=== PATIENT | male | born 1925 | race Caucasian/White ===

== ENCOUNTER 2016-11-18 22:37 | Inpatient (IN) | payer MEDICARE, OTHER ==
--- NOTE | 2016-11-18 23:58 | EDM.PDOC ---
ED HPI GENERAL MEDICAL PROBLEM - General Chief Complaint: Fever Stated Complaint: fever Time Seen by Provider: 11/18/16 22:55 Source of Information: Reports: Patient, Family History Limitations: Reports: No limitations - History of Present Illness INITIAL COMMENTS - FREE TEXT/NARRATIVE: This patient is an 89 year old male that presents to the ER. Patient is accompanied by family. The family reports the patient began last night with fever of 100.1. She reports then today has had fever of 101.7. The patietn only complaint is generalized body aches. Patient family reports he has been more generally weak more than normal. Patient family reports patient is baseline mental status. Patient is alert, oriented to self. Not to place or time. Patient denies having cardoso, dizziness, n, v, d, f, congestion, drainage, cough, neck pain, neck stiffness, cp, soa, abd pain, urinary/bowel changes, rash. Patient had labs done and saw his oncologist one week ago. His wbc was 1.1, hgb 6.6, platelets 25. Onset Date: 11/17/16 Duration: Day(s): (1) Severity: mild Improves with: Reports: None Worsens with: Reports: None Associated Symptoms: Reports: weakness (generalized), other (gneralized body aches ). Denies: confusion, chest pain, cough, cough w sputum, diaphoresis, fever/chills, headaches, loss of appetite, malaise, nausea/vomiting, rash, seizure, shortness of breath, syncope - Related Data Allergies Allergy/AdvReac Type Severity Reaction Status Date / Time Penicillins Allergy Intermediate Hives Verified 10/19/16 02:06 Home Meds: Home Meds Cholecalciferol (Vitamin D3) [Vitamin D3] 1,000 unit PO DAILY 08/03/14 [History] Cyanocobalamin (Vitamin B-12) [Vitamin B-12] 500 mcg PO DAILY 08/03/14 [History] Omeprazole [Prilosec] 20 mg PO DAILY 08/03/14 [History] Dextran 70/Hypromellose [Artificial Tears] 1 drop EYEBOTH QID PRN 10/19/16 [ History] Fluconazole [Diflucan] 100 mg PO DAILY 10/19/16 [History] Levofloxacin [Levaquin] 500 mg PO Q24H 10/19/16 [History] Sennosides/Docusate Sodium [Miranda-Colace] 1 tab PO DAILY 10/19/16 [History] Silodosin [Rapaflo] 8 mg PO DAILY 10/19/16 [History] Vit A/Vit C/Vit E/Zinc/Copper [Preservision] 1 each PO DAILY 10/19/16 [History] valACYclovir [Valtrex] 500 mg PO DAILY 10/19/16 [History] Past Medical History Cardiovascular History: Reports: Heart murmur Genitourinary History: Reports: UTI, recurrent Other Genitourinary History: recent [place] catheter Other Musculoskeletal History: pelvic fracture Other Hematologic History: unaware at this time but labs are CBC abnormal Oncologic (Cancer) History: Reports: Leukemia Social & Family History - Family History Family Medical History: Noncontributory - Tobacco Use Smoking Status *Q: Never Smoker Second Hand Smoke Exposure: No - Alcohol Use Days Per Week of Alcohol Use: 0 - Recreational Drug Use Recreational Drug Use: No Drug Use in Last 12 Months: Yes - Living Situation & Occupation Living situation: Reports: , with spouse 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 ) Skin: Reports: no symptoms Neurological: Reports: no symptoms (baseline. ) Psychiatric: Reports: No symptoms Hematologic/Lymphatic: Reports: no symptoms Immunologic: Reports: no symptoms ED EXAM, GENERAL - Physical Exam Exam: See Below Exam Limited By: No limitations General Appearance: alert, WD/WN, no apparent distress Eye Exam: bilateral eye: normal inspection Ears: normal external exam, normal canal, hearing grossly normal, normal TMs Ear Exam: bilateral ear: auricle normal, canal normal, TM normal Nose: normal inspection, normal mucosa, no blood Throat/Mouth: Normal inspection, Normal lips, Normal gums, Normal oropharynx, Normal voice, No airway compromise Head: atraumatic, normocephalic Neck: normal inspection, supple, non-tender, full range of motion Respiratory/Chest: no respiratory distress, lungs clear, normal breath sounds, no accessory muscle use, chest non-tender Cardiovascular: normal peripheral pulses, regular rate, rhythm, no edema, no gallop, no JVD, no murmur, no rub Peripheral Pulses: 2+: radial (L), radial (R), posterior tibial (L), posterior tibial (R), dorsalis pedis (L), dorsalis pedis (R) GI/Abdominal: normal bowel sounds, soft, non tender, no organomegaly, no distention, no abnormal bruit, no mass Back Exam: normal inspection, full range of motion. No: CVA tenderness (L), CVA tenderness (R) Extremities: normal inspection, normal range of motion, non-tender, no pedal edema, normal capillary refill Neurological: alert, oriented Psychiatric: normal affect, normal mood Skin Exam: Warm, Dry, Intact, Normal color, No rash Lymphatic: no adenopathy Course - Vital Signs Last Recorded V/S: Last Vital Signs Temp 100.4 F 11/18/16 22:53 Pulse 75 11/18/16 22:53 Resp 16 11/18/16 22:53 BP 114/55 L 11/18/16 22:53 Pulse Ox 96 11/18/16 22:53 - Orders/Labs/Meds Orders: Active Orders 24 hr Category Date Time Status Chest 2V [CR] Stat Exams 11/18/16 23:22 Taken CULTURE BLOOD [BC] Stat Lab 11/18/16 23:36 Received CULTURE BLOOD [BC] Stat Lab 11/18/16 23:36 Received Blood Culture x2 Reflex Set [OM.PC] Stat Oth 11/18/16 23:09 Ordered Labs: Laboratory Tests 11/18/16 11/18/16 11/18/16 Range/Units 23:09 23:36 23:36 WBC 1.9 L* (5.0-10.0) 10^3/uL RBC 2.23 L (4.50-6.00) 10^6/uL Hgb 7.4 L* (14.0-18.0) g/dL Hct 22.0 L (40.0-54.0) % MCV 98.7 H (82.0-94.0) fL MCH 33.2 H (27.0-32.0) pg MCHC 33.6 (33.0-38.0) g/dL RDW Coeff of Madisyn 18.8 H (11.0-15.0) % Plt Count 14 L* (150-400) 10^3/uL Add Manual Diff Yes Neutrophils % (Manual) 6 L (35-85) % Lymphocytes % (Manual) 74 H (21-55) % Monocytes % (Manual) 4 (2-12) % Metamyelocytes % 2 % Myelocytes % 4 % Blast Cells % 10 % Absolute Neutrophils 0.11 L (1.80-7.00) 10^3/uL Lymphocytes # (Manual) 1.41 (1.00-4.80) 10^3/uL Monocytes # (Manual) 0.08 (0.00-0.80) 10^3/uL Platelet Estimate Marked dec L (ADEQUATE) Sodium 138 (136-145) mEq/L Potassium 3.9 D (3.5-5.0) mEq/L Chloride 104 (98-106) mEq/L Carbon Dioxide 26 (21-32) mmol/L BUN 17 (7-18) mg/dL Creatinine 1.2 (0.7-1.3) mg/dL Est Cr Clr Drug Dosing 43.09 mL/min Estimated GFR (MDRD) 57 L (>=60) mL/min Glucose 130 H (75-99) mg/dL Lactic Acid (0.4-2.0) mmol/L Calcium 8.1 L (8.4-10.1) mg/dL Total Bilirubin 0.6 (0.0-1.0) mg/dL AST 14 L (15-37) U/L ALT 14 (12-78) U/L Alkaline Phosphatase 100 (46-116) U/L C-Reactive Protein 4.6 H (0.2-0.8) mg/dL Total Protein 6.5 (6.4-8.2) g/dL Albumin 2.6 L (3.4-5.0) g/dL Urine Color Yellow (YELLOW) Urine Appearance Clear (CLEAR) Urine pH 6.0 (4.5-8.0) Ur Specific [place] 1.021 H (1.003-1.020) Urine Protein 30 H (NEGATIVE) mg/dL Urine Glucose (UA) Negative (NEGATIVE) mg/dL Urine Ketones Negative (NEGATIVE) mg/dL Urine Occult Blood Negative (NEGATIVE) Urine Nitrite Negative (NEGATIVE) Urine Bilirubin Negative (NEGATIVE) Urine Urobilinogen 1.0 (0.2-1.0) EU/dL Ur Leukocyte Esterase Negative (NEGATIVE) Urine RBC Not seen (0-5) /HPF Urine WBC Not seen (0-5) /HPF Ur Squamous Epith Cells Few H (NOT SEEN) /HPF Urine Bacteria Few H (NOT SEEN) /HPF Urine Mucus Many H (NOT SEEN) /HPF 11/18/16 Range/Units 23:36 WBC (5.0-10.0) 10^3/uL RBC (4.50-6.00) 10^6/uL Hgb (14.0-18.0) g/dL Hct (40.0-54.0) % MCV (82.0-94.0) fL MCH (27.0-32.0) pg MCHC (33.0-38.0) g/dL RDW Coeff of Madisyn (11.0-15.0) % Plt Count (150-400) 10^3/uL Add Manual Diff Neutrophils % (Manual) (35-85) % Lymphocytes % (Manual) (21-55) % Monocytes % (Manual) (2-12) % Metamyelocytes % % Myelocytes % % Blast Cells % % Absolute Neutrophils (1.80-7.00) 10^3/uL Lymphocytes # (Manual) (1.00-4.80) 10^3/uL Monocytes # (Manual) (0.00-0.80) 10^3/uL Platelet Estimate (ADEQUATE) Sodium (136-145) mEq/L Potassium (3.5-5.0) mEq/L Chloride (98-106) mEq/L Carbon Dioxide (21-32) mmol/L BUN (7-18) mg/dL Creatinine (0.7-1.3) mg/dL Est Cr Clr Drug Dosing mL/min Estimated GFR (MDRD) (>=60) mL/min Glucose (75-99) mg/dL Lactic Acid 1.5 (0.4-2.0) mmol/L Calcium (8.4-10.1) mg/dL Total Bilirubin (0.0-1.0) mg/dL AST (15-37) U/L ALT (12-78) U/L Alkaline Phosphatase (46-116) U/L C-Reactive Protein (0.2-0.8) mg/dL Total Protein (6.4-8.2) g/dL Albumin (3.4-5.0) g/dL Urine Color (YELLOW) Urine Appearance (CLEAR) Urine pH (4.5-8.0) Ur Specific [place] (1.003-1.020) Urine Protein (NEGATIVE) mg/dL Urine Glucose (UA) (NEGATIVE) mg/dL Urine Ketones (NEGATIVE) mg/dL Urine Occult Blood (NEGATIVE) Urine Nitrite (NEGATIVE) Urine Bilirubin (NEGATIVE) Urine Urobilinogen (0.2-1.0) EU/dL Ur Leukocyte Esterase (NEGATIVE) Urine RBC (0-5) /HPF Urine WBC (0-5) /HPF Ur Squamous Epith Cells (NOT SEEN) /HPF Urine Bacteria (NOT SEEN) /HPF Urine Mucus (NOT SEEN) /HPF Meds: Medications Discontinued Medications Generic Name Dose Route Start Last Admin Trade Name Freq PRN Reason Stop Dose Admin Acetaminophen 650 mg 11/19/16 00:28 Tylenol PO 11/19/16 00:29 NOW ONE - Radiology Interpretation Free Text/Narrative:: CXR: No infiltrate, no pulmonary edema, no cardiomegaly. - Re-Assessments/Exams Free Text/Narrative Re-Assessment/Exam: 11/19/16 00:26 I have reviewed all of patients labs and compared with previous from one week ago. I called [facility] and discussed patient case with Dr. Gr oncologist acquisitions analyst. He would like for me to treat patient locally. Would like admitted inpatient and treatment with Zosyn IV. He would like hospitalist to contact Dr. Swift during business hours to discuss his patients care. I will admit this patient. Departure - Departure Time of Disposition: 00:24 Disposition: Admitted As Inpatient 68 Condition: fair Clinical Impression: Leukopenia, Neutropenia, Fever, Generalized weakness, Leukemia Forms: ED Department Discharge - My Orders Last 24 Hours: My Active Orders 11/18/16 23:09 Blood Culture x2 Reflex Set [OM.PC] Stat 11/18/16 23:22 Chest 2V [CR] Stat 11/18/16 23:36 CULTURE BLOOD [BC] Stat CULTURE BLOOD [BC] Stat - Assessment/Plan Last 24 Hours: My Active Orders 11/18/16 23:09 Blood Culture x2 Reflex Set [OM.PC] Stat 11/18/16 23:22 Chest 2V [CR] Stat 11/18/16 23:36 CULTURE BLOOD [BC] Stat CULTURE BLOOD [BC] Stat Plan: PLEASE USE RN NOTE FOR PFSH. PLEASE USE MY ER H&P ADMIT H&P.
[2016-11-19] MEDS ORDERED: Acetaminophen 325 MG Tab PO ONE (00:28)
[2016-11-19] MEDS ORDERED: Ibuprofen 200 MG Tab PO PRN (01:54)
[2016-11-19] MEDS ORDERED: Piperacillin/Tazobactam 4.5 GM in Sodium Chloride 0.9% 100 ML IV SCH ×2 (01:54→02:30)
[2016-11-19] MEDS ORDERED: Ondansetron 4 MG/2 ML SDV IV PRN (01:54)
[2016-11-19] MEDS ORDERED: Sodium Chloride 0.9% 10 ML Syringe FLUSH PRN (01:54)
[2016-11-19] MEDS ORDERED: Morphine 2 MG/ML Syringe IVPUSH PRN (01:54)
[2016-11-19] MEDS ORDERED: Acetaminophen/HYDROcodone 325-5 MG Tab PO PRN (01:54)
[2016-11-19] MEDS ORDERED: Enoxaparin 40 MG/0.4 ML Syringe SUBCUT SCH (01:54)
[2016-11-19] MEDS ORDERED: Levofloxacin 500 MG Tab PO SCH (02:00)
[2016-11-19] MEDS ORDERED: Polyvinyl Alcohol 1.4% Ophth Soln 15 ML Bottle EYEBOTH PRN (02:30)
[2016-11-19] MEDS: Pantoprazole 40 MG Tab.CR PO SCH (06:54)
[2016-11-19] MEDS ORDERED: SILODOSIN 8 MG PO SCH (08:00)
[2016-11-19] MEDS ORDERED: Tamsulosin 0.4 MG Cap.ER PO SCH (08:00)
[2016-11-19] MEDS ORDERED: Non-Formulary Medication 1 Each (Omeprazole [Prilosec] 20 MG) PO SCH (08:00)
[2016-11-19] MEDS: Cholecalciferol (Vitamin D3) 1,000 Unit Tab PO SCH (08:10)
[2016-11-19] MEDS: Cyanocobalamin (Vitamin B12) 100 MCG Tab PO SCH (08:10)
[2016-11-19] MEDS: Beta-Carotene (Vitamin A) w/Vitamin C & E plus Minerals Tab PO SCH (08:10)
[2016-11-19] MEDS: Fluconazole 100 MG Tab PO SCH (08:11)
[2016-11-19] MEDS: valACYclovir 500 MG Tab PO SCH (08:11)
[2016-11-19 08:36] LABS: CHLORIDE,CL 105 mEq/L (98-106); SODIUM,NA 139 mEq/L (136-145)
--- NOTE | 2016-11-19 09:40 | PCM.PN ---
- General Info Date of Service: 11/19/16 Functional Status: Reports: pain controlled, tolerating diet, ambulating - Review of Systems General: Reports: weakness, fatigue. Denies: fever HEENT: Denies: ear pain, sinus congestion, sore throat, rhinitis Pulmonary: Denies: shortness of breath, cough, wheezing Cardiovascular: Denies: chest pain, edema, lightheadedness Gastrointestinal: Denies: Abdominal pain, Nausea, Vomiting Genitourinary: Reports: no symptoms Musculoskeletal: Reports: no symptoms Skin: Reports: pallor Neurological: Reports: weakness - Patient Data Vitals - most recent: Last Vital Signs Temp 97.1 F 11/19/16 04:00 Pulse 77 11/19/16 04:00 Resp 18 11/19/16 04:00 BP 118/56 L 11/19/16 04:00 Pulse Ox 95 11/19/16 04:00 Weight - most recent: 173 lb 14.4 oz I&O - last 24 hours: Intake & Output 11/18/16 11/19/16 11/19/16 22:59 06:59 14:59 Intake Total 200 Balance 200 Lab Results last 24 hrs: Laboratory Results - last 24 hr 11/19/16 11/19/16 Range/Units 05:00 07:00 WBC 1.5 L* (5.0-10.0) 10^3/uL RBC 2.11 L (4.50-6.00) 10^6/uL Hgb 7.0 L* (14.0-18.0) g/dL Hct 20.6 L (40.0-54.0) % MCV 97.6 H (82.0-94.0) fL MCH 33.2 H (27.0-32.0) pg MCHC 34.0 (33.0-38.0) g/dL RDW Coeff of Madisyn 18.8 H (11.0-15.0) % Plt Count 14 L* (150-400) 10^3/uL Neut % (Auto) Senior Clinical Research Associate Lymph % (Auto) Senior Clinical Research Associate [place] % (Auto) Senior Clinical Research Associate Eos % (Auto) Senior Clinical Research Associate Baso % (Auto) Senior Clinical Research Associate Neut # Senior Clinical Research Associate Lymph # Senior Clinical Research Associate [place] # Senior Clinical Research Associate Eos # Senior Clinical Research Associate Baso # Senior Clinical Research Associate Add Manual Diff Yes Neutrophils % (Manual) 6 L (35-85) % Lymphocytes % (Manual) 68 H (21-55) % Monocytes % (Manual) 6 (2-12) % Eosinophils % (Manual) 2 (0-5) % Blast Cells % 18 % Absolute Neutrophils 0.09 L (1.80-7.00) 10^3/uL Lymphocytes # (Manual) 1.02 (1.00-4.80) 10^3/uL Monocytes # (Manual) 0.09 (0.00-0.80) 10^3/uL Eosinophils # (Manual) 0.03 (0.00-0.45) 10^3/uL Sodium 139 (136-145) mEq/L Potassium 3.3 L (3.5-5.0) mEq/L Chloride 105 (98-106) mEq/L Carbon Dioxide 25 (21-32) mmol/L BUN 13 (7-18) mg/dL Creatinine 1.1 (0.7-1.3) mg/dL Est Cr Clr Drug Dosing 47.01 mL/min Estimated GFR (MDRD) > 60 (>=60) mL/min Glucose 117 H (75-99) mg/dL Calcium 8.0 L (8.4-10.1) mg/dL C-Reactive Protein 4.0 H (0.2-0.8) mg/dL Med Orders - Current: Current Medications Acetaminophen (Tylenol) 650 mg PO Q4H PRN PRN Reason: Pain (Mild 1-3)/fever Acetaminophen/Hydrocodone Bitart ([place] 325-5 Mg) 1 tab PO Q4H PRN PRN Reason: Pain (moderate 4-6) Artificial Tears (Liquitears 1.4% Ophth Soln) 0 ml EYEBOTH QID PRN PRN Reason: DRY EYE Cholecalciferol (Vitamin D3) 1,000 units PO DAILY [facility] Last Admin: 11/19/16 08:10 Dose: 1,000 units Cyanocobalamin (Vitamin B12) 500 mcg PO DAILY [facility] Last Admin: 11/19/16 08:10 Dose: 500 mcg Enoxaparin Sodium (Lovenox) 40 mg SUBCUT Q24H [facility] Fluconazole (Diflucan) 100 mg PO DAILY [facility] Last Admin: 11/19/16 08:11 Dose: 100 mg Piperacillin Sod/Tazobactam (Sod 4.5 gm/ Sodium Chloride) 100 mls @ 200 mls/hr IV Q6H [facility] Ibuprofen (Motrin) 600 mg PO Q6H PRN PRN Reason: Pain (mild 1-3) Levofloxacin (Levaquin) 500 mg PO Q24H [facility] Morphine Sulfate (Morphine) 2 mg IVPUSH Q2H PRN PRN Reason: Pain (severe 7-10) Multivitamins/Minerals (Prosight) 1 tab PO DAILY [facility] Last Admin: 11/19/16 08:10 Dose: 1 tab Ptom-Rapaflo 8mg 1 each PO DAILY [facility] Ondansetron HCl (Zofran) 4 mg IV Q6H PRN PRN Reason: Nausea/Vomiting Pantoprazole Sodium (Protonix) 40 mg PO ACBREAKFAST [facility] Last Admin: 11/19/16 06:54 Dose: 40 mg Senna/Docusate Sodium (Senna Plus) 1 tab PO DAILY [facility] Last Admin: 11/19/16 08:10 Dose: 1 tab Sodium Chloride (Saline Flush) 10 ml FLUSH ASDIRECTED PRN PRN Reason: Keep Vein Open Valacyclovir HCl (Valtrex) 500 mg PO DAILY [facility] Last Admin: 11/19/16 08:11 Dose: 500 mg Discontinued Medications Acetaminophen (Tylenol) 650 mg PO NOW ONE Stop: 11/19/16 00:29 Last Admin: 11/19/16 02:39 Dose: 650 mg Piperacillin Sod/Tazobactam (Sod 4.5 gm/ Sodium Chloride) 100 mls @ 200 mls/hr IV Q6H [facility] Last Admin: 11/19/16 02:43 Dose: 200 mls/hr Tamsulosin HCl (Flomax) 0.4 mg PO DAILY [facility] Last Admin: 11/19/16 08:11 Dose: 0.4 mg - Exam General: alert, oriented HEENT: Mucous membr. moist/pink Neck: supple Lungs: Clear to auscultation, Normal respiratory effort Cardiovascular: regular rate, regular rhythm Abdomen: bowel sounds present, soft, no tenderness Extremities: no edema Skin: warm, dry Neurological: no new focal deficit Psy/Mental Status: alert, normal affect, normal mood - Problem List & Annotations (1) Need for comfort care SNOMED Code(s): 807740043 Code(s): AVX4206 - Status: Acute Priority: High Current Visit: Yes (2) Fever SNOMED Code(s): 610651463 Code(s): R50.9 - FEVER, UNSPECIFIED Status: Acute Priority: High Current Visit: Yes (3) Generalized weakness SNOMED Code(s): 48026462 Code(s): R53.1 - WEAKNESS Status: Acute Priority: High Current Visit: Yes (4) Leukopenia SNOMED Code(s): 77813612 Code(s): D72.819 - DECREASED WHITE BLOOD CELL COUNT, UNSPECIFIED Status: Acute Priority: High Current Visit: Yes (5) Neutropenia SNOMED Code(s): 749882520 Code(s): D70.9 - NEUTROPENIA, UNSPECIFIED Status: Acute Priority: High Current Visit: Yes - Problem List Review Problem List Initiated/Reviewed/Updated: Yes - My Orders Last 24 Hours: My Active Orders 11/19/16 09:01 Consult to Hospice [CONS] Routine RED BLOOD CELLS LP [BBK] Routine TYPE AND SCREEN [BBK] Routine Transfuse Red Blood Cells [COMM] Routine - Assessment Assessment:: AML Leukopenia Weakness - Plan Plan:: Patient is feeling better today. Afebrile now. Sergio Julio did visit with the telephone technician oncologist last night who recommended Zosyn despite knowing a source of infection due to history of leukopenia. Patient was last down to see his oncologist last week. Was decided then that the chemo was not of any benefit for him, "wasn't working anymore". Opted for no further chemo treatments. His hemoglobin was 6.6 and daughter relates that he got 2 units of PRBC at that time. "doesn't hold him for very long anymore". 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 Discussed current labs with patient and family. Will transfuse 2 units today. Hospice discussed and family in agreement for this. Still could get blood products at times if needed for comfort, palliative care. All in agreement with this. Will continue with Zosyn as well at this point. Possible discharge home tomorrow.
[2016-11-19] MEDS ORDERED: Sodium Chloride 0.9% 500 ML ONE (09:51)
[2016-11-19] MEDS: Acetaminophen 325 MG Tab PO PRN ×2 (10:30→18:32)
[2016-11-19] MEDS ORDERED: diphenhydrAMINE 50 MG/ML SDV IVPUSH ONE (10:58)
[2016-11-19] MEDS: Levofloxacin 500 MG Tab PO SCH (12:29)
[2016-11-19] MEDS: Piperacillin/Tazobactam 4.5 GM in Sodium Chloride 0.9% 100 ML IV SCH ×2 (13:19→18:32)
[2016-11-20] MEDS: Piperacillin/Tazobactam 4.5 GM in Sodium Chloride 0.9% 100 ML IV SCH ×2 (01:08→06:03)
[2016-11-20] MEDS: Pantoprazole 40 MG Tab.CR PO SCH (06:04)
[2016-11-20] MEDS: Cyanocobalamin (Vitamin B12) 100 MCG Tab PO SCH (07:41)
[2016-11-20] MEDS: Beta-Carotene (Vitamin A) w/Vitamin C & E plus Minerals Tab PO SCH (07:41)
[2016-11-20] MEDS: Fluconazole 100 MG Tab PO SCH (07:42)
[2016-11-20] MEDS: valACYclovir 500 MG Tab PO SCH (07:42)
[2016-11-20] MEDS: Cholecalciferol (Vitamin D3) 1,000 Unit Tab PO SCH (07:42)
[2016-11-20] MEDS ORDERED: RAPAFLO 8 MG PO SCH (08:00)
[2016-11-20 08:21] LABS: CHLORIDE,CL 107 mEq/L (98-106); SODIUM,NA 140 mEq/L (136-145)
[2016-11-20 08:36] VITALS: BP 138/66
[2016-11-20] MEDS: Levofloxacin 500 MG Tab PO SCH (11:44)
--- NOTE | 2016-11-20 17:32 | PCM.DCSUM1 ---
Discharge Summary - Hospital Course Free Text/Narrative:: Patient admitted from ER on Friday with weakness, fevers and leukopenia. 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 Was down to his oncologist a week ago and blood counts were also low at that time. Was given 2 units of blood and told that further chemo was not an option as it was no longer providing him with any benefit. Family related he developed a fever at home and was weak so presented to the ER. WBC was low at 1.9, hemoglobin 7.4 and platelets of 14. Sergio Kim contacted radiologist shift production supervisor and was advised to admit and administer IV Zosyn as coverage. Blood cultures ordered. UA clear. - Discharge Data Discharge Date: 11/20/16 Discharge Disposition: Home, Self-Care 01 Condition: Poor - Discharge Diagnosis/Problem(s) (1) Need for comfort care SNOMED Code(s): 824286629 ICD Code: [id number] - Status: Acute Priority: High (2) Fever SNOMED Code(s): 112299639 ICD Code: R50.9 - FEVER, UNSPECIFIED Status: Acute Priority: High (3) Generalized weakness SNOMED Code(s): 06306008 ICD Code: R53.1 - WEAKNESS Status: Acute Priority: High (4) Leukopenia SNOMED Code(s): 05309868 ICD Code: D72.819 - DECREASED WHITE BLOOD CELL COUNT, UNSPECIFIED Status: Acute Priority: High (5) Neutropenia SNOMED Code(s): 834867041 ICD Code: D70.9 - NEUTROPENIA, UNSPECIFIED Status: Acute Priority: High - Patient Summary/Data Operative Procedure(s) Performed: colonoscopy Complications: none Consults: Consultations 11/19/16 09:01 Consult to Hospice [CONS] Routine Hospital Course: Patient admitted with fevers of 101. Given IV Zosyn. Yesterday received 2 units of PRBC and hemoglobin now improved to 9.2. 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 Comfort cares ordered due to end of life concerns in relation to his leukemia. Discussion about further blood transfusion as comfort/palliative care discussed with patient's family. They have been providing in home care for 4 months now for their parents and would like to continue what they feel will be beneficial but not life prolonging. Patient remained comfortable during his stay, felt better after transfusion as weakness did improve. Appetite good while hospitalized. Blood cultures, strep screen and influenza testing negative. - Patient Instructions Diet: Usual Diet as Tolerated Activity: As Tolerated - Discharge Plan Home Medications: Home Meds Omeprazole [Prilosec] 20 mg PO DAILY 08/03/14 [History] Dextran 70/Hypromellose [Artificial Tears] 1 drop EYEBOTH QID PRN 10/19/16 [ History] Fluconazole [Diflucan] 100 mg PO DAILY 10/19/16 [History] Levofloxacin [Levaquin] 500 mg PO Q24H 10/19/16 [History] Sennosides/Docusate Sodium [Miranda-Colace] 1 tab PO DAILY 10/19/16 [History] Silodosin [Rapaflo] 8 mg PO DAILY 10/19/16 [History] valACYclovir [Valtrex] 500 mg PO DAILY 10/19/16 [History] Forms: ED Department Discharge Referrals: Daniel Carvajal MD [Primary Care Provider] - (See Dr. Carvajal as needed ) - Discharge Summary/Plan Comment DC Time >30 min.: No Discharge Summary/Plan Comment: Discharge home with Hospice for comfort cares related to his leukemia. Will continue usual prescriptive meds at this time but cut out his supplements as he does have difficulty with meds. - General Info Date of Service: 11/20/16 Admission Dx/Problem (Free Text: AML Leukopenia Functional Status: Reports: pain controlled, tolerating diet, ambulating - Review of Systems General: Reports: fever (low grade today), weakness, fatigue HEENT: Denies: ear pain, sinus congestion, sore throat, rhinitis Pulmonary: Denies: shortness of breath, cough, wheezing Cardiovascular: Denies: chest pain, edema, lightheadedness Gastrointestinal: Denies: Abdominal pain, Constipation, Diarrhea, Nausea, Vomiting Genitourinary: Reports: no symptoms Musculoskeletal: Reports: no symptoms Skin: Reports: no symptoms Neurological: Reports: no symptoms - Patient Data Vitals - Most Recent: Last Vital Signs Temp 97.3 F 11/20/16 08:00 Pulse 65 11/20/16 08:00 Resp 18 11/20/16 08:00 BP 138/66 11/20/16 08:00 Pulse Ox 96 11/20/16 08:00 Weight - Most Recent: 173 lb 14.4 oz I&O - Last 24 hours: Intake & Output 11/20/16 11/20/16 11/20/16 06:59 14:59 22:59 Intake Total 750 Balance 750 Lab Results - Last 24 hrs: Laboratory Results - last 24 hr 11/19/16 11/20/16 11/20/16 Range/Units 07:00 07:46 07:47 WBC 2.1 L (5.0-10.0) 10^3/uL RBC 2.87 L (4.50-6.00) 10^6/uL Hgb 9.2 L (14.0-18.0) g/dL Hct 26.9 L (40.0-54.0) % MCV 93.7 (82.0-94.0) fL MCH 32.1 H (27.0-32.0) pg MCHC 34.2 (33.0-38.0) g/dL RDW Coeff of Madisyn 17.7 H (11.0-15.0) % Plt Count 12 L* (150-400) 10^3/uL Add Manual Diff Yes Lymphocytes % (Manual) 66 H (21-55) % Monocytes % (Manual) 4 (2-12) % Eosinophils % (Manual) 2 (0-5) % Blast Cells % 28 % Lymphocytes # (Manual) 1.39 (1.00-4.80) 10^3/uL Monocytes # (Manual) 0.08 (0.00-0.80) 10^3/uL Eosinophils # (Manual) 0.04 (0.00-0.45) 10^3/uL Nucleated RBCs 1 (0-5) /100WBC Sodium 140 (136-145) mEq/L Potassium 3.3 L (3.5-5.0) mEq/L Chloride 107 H (98-106) mEq/L Carbon Dioxide 24 (21-32) mmol/L BUN 11 (7-18) mg/dL Creatinine 1.1 (0.7-1.3) mg/dL Est Cr Clr Drug Dosing 47.01 mL/min Estimated GFR (MDRD) > 60 (>=60) mL/min Glucose 104 H (75-99) mg/dL Calcium 8.0 L (8.4-10.1) mg/dL C-Reactive Protein 4.6 H (0.2-0.8) mg/dL Blood Type O POSITIVE Gel Antibody Screen Negative Crossmatch See Detail Med Orders - Current: Current Medications Discontinued Medications Acetaminophen (Tylenol) 650 mg PO NOW ONE Stop: 11/19/16 00:29 Last Admin: 11/19/16 02:39 Dose: 650 mg Acetaminophen (Tylenol) 650 mg PO Q4H PRN PRN Reason: Pain (Mild 1-3)/fever Last Admin: 11/19/16 18:32 Dose: 650 mg Acetaminophen/Hydrocodone Bitart ([place] 325-5 Mg) 1 tab PO Q4H PRN PRN Reason: Pain (moderate 4-6) Last Admin: 11/20/16 01:09 Dose: 1 tab Artificial Tears (Liquitears 1.4% Ophth Soln) 0 ml EYEBOTH QID PRN PRN Reason: DRY EYE Cholecalciferol (Vitamin D3) 1,000 units PO DAILY [facility] Last Admin: 11/20/16 07:42 Dose: 1,000 units Cyanocobalamin (Vitamin B12) 500 mcg PO DAILY [facility] Last Admin: 11/20/16 07:41 Dose: 500 mcg Diphenhydramine HCl (Benadryl) 25 mg IVPUSH ONETIME ONE Stop: 11/19/16 10:59 Last Admin: 11/19/16 13:19 Dose: 25 mg Fluconazole (Diflucan) 100 mg PO DAILY [facility] Last Admin: 11/20/16 07:42 Dose: 100 mg Piperacillin Sod/Tazobactam (Sod 4.5 gm/ Sodium Chloride) 100 mls @ 200 mls/hr IV Q6H [facility] Last Admin: 11/19/16 02:43 Dose: 200 mls/hr Piperacillin Sod/Tazobactam (Sod 4.5 gm/ Sodium Chloride) 100 mls @ 200 mls/hr IV Q6H [facility] Last Admin: 11/20/16 06:03 Dose: 200 mls/hr Sodium Chloride (Normal Saline) Confirm Administered Dose 500 mls @ as directed .ROUTE .STK-MED ONE Stop: 11/19/16 09:52 Last Admin: 11/19/16 10:30 Dose: 50 ml Ibuprofen (Motrin) 600 mg PO Q6H PRN PRN Reason: Pain (mild 1-3) Last Admin: 11/19/16 20:10 Dose: 600 mg Levofloxacin (Levaquin) 500 mg PO Q24H [facility] Last Admin: 11/20/16 11:44 Dose: 500 mg Morphine Sulfate (Morphine) 2 mg IVPUSH Q2H PRN PRN Reason: Pain (severe 7-10) Multivitamins/Minerals (Prosight) 1 tab PO DAILY [facility] Last Admin: 11/20/16 07:41 Dose: 1 tab Ptom-Rapaflo 8mg 1 each PO DAILY [facility] Last Admin: 11/20/16 07:42 Dose: 1 each Ondansetron HCl (Zofran) 4 mg IV Q6H PRN PRN Reason: Nausea/Vomiting Pantoprazole Sodium (Protonix) 40 mg PO ACBREAKFAST [facility] Last Admin: 11/20/16 06:04 Dose: 40 mg Senna/Docusate Sodium (Senna Plus) 1 tab PO DAILY [facility] Last Admin: 11/20/16 07:42 Dose: 1 tab Sodium Chloride (Saline Flush) 10 ml FLUSH ASDIRECTED PRN PRN Reason: Keep Vein Open Tamsulosin HCl (Flomax) 0.4 mg PO DAILY [facility] Last Admin: 11/19/16 08:11 Dose: 0.4 mg Tamsulosin HCl (Flomax) 0.4 mg PO DAILY [facility] Valacyclovir HCl (Valtrex) 500 mg PO DAILY [facility] Last Admin: 11/20/16 07:42 Dose: 500 mg - Exam General: Reports: alert, oriented HEENT: Reports: Mucous membr. moist/pink Neck: Reports: supple Lungs: Reports: Clear to auscultation, Normal respiratory effort Cardiovascular: Reports: regular rate, regular rhythm Abdomen: Reports: bowel sounds present, soft, no tenderness Extremities: Reports: no edema Skin: Reports: warm, dry Neurological: Reports: no new focal deficit *Q Meaningful Use (DIS) - VTE *Q VTE Criteria *Q: - Stroke *Q Stroke Criteria *Q: - AMI *Q AMI Criteria *Q:
[2016-11-21] MEDS ORDERED: Tamsulosin 0.4 MG Cap.ER PO SCH (08:00)
== END 2016-11-20 14:20 | disposition hospice, home (50) | DRG 842 ==
LOC: CC.ED 22:37 → CC.MS 11-19 00:46 → UNDOADMIN 11-19 01:43 → CC.MS 11-19 01:43 → UNDOADMIN 11-19 01:54 → CC.MS 11-19 01:54 → UNDODISIN 11-20 14:20
PROVIDERS: ADMIT Nurse Practitioner; ATTEND Family Medicine
DX: C92.Z0 Other myeloid leukemia not having achieved remission (principal); D70.9 Neutropenia, unspecified; R50.9 Fever, unspecified; Z51.5 Encounter for palliative care; Z66 Do not resuscitate; R53.1 Weakness; Z92.21 Personal history of antineoplastic chemotherapy; Z87.440 Personal history of urinary (tract) infections; Z88.0 Allergy status to penicillin
CPT/HCPCS: 36415; 36430; 71020; 80048; 80053; 81001; 83605; 85025; 86140; 86850; 86900; 86901; 86920; 86922; 87040; 87430; 87804; 99285; A9270-GY; J1200; J2543; J7040; J7050; P9016